=== PATIENT | female | born 1940 | race Two or more races ===

== ENCOUNTER → 2021-11-21 | Outpatient (CLI) | payer MEDICARE | LOC: M RAD 09:07 | PROVIDERS: ATTEND Family Medicine | DX: R19.04 Left lower quadrant abdominal swelling, mass and lump (principal) ==

== ENCOUNTER → 2021-12-05 | Outpatient (CLI) | payer MEDICARE | LOC: M RAD 13:11 | PROVIDERS: ATTEND Family Medicine | DX: I71.4 Abdominal aortic aneurysm, without rupture (principal); R19.04 Left lower quadrant abdominal swelling, mass and lump ==

== ENCOUNTER → 2021-12-15 | Outpatient (CLI) | payer MEDICARE ==
[2021-12-15 16:03] LABS: BASO % 0.5 % (0.0-1.0); EOS # 0.1 10^3/uL (0.0-0.5); EOS % 1.8 % (0.0-3.0); HEMATOCRIT 42.3 % (36.0-47.0); LYMPH # 1.7 10^3/uL (1.5-5.0); LYMPH % 22.5 % (24.0-44.0); MEAN CORPUSCULAR HEMOGLOBIN 31.7 pg (27.0-33.0); MEAN CORPUSCULAR HGB CONC 33.1 g/dl (32.0-36.5); MEAN CORPUSCULAR VOLUME 95.7 fl (80.0-96.0); MONO # 0.9 10^3/uL (0.0-0.8); MONO % 11.7 % (2.0-8.0); NEUTROPHILS # 4.8 10^3/uL (1.5-8.5); NEUTROPHILS % 63.1 % (36.0-66.0); PLATELET COUNT, AUTOMATED 276 10^3/uL (150-450); RED BLOOD COUNT 4.42 10^6/uL (4.00-5.40); WHITE BLOOD COUNT 7.6 10^3/uL (4.0-10.0)
[2021-12-15 16:37] LABS: ERYTHROCYTE SEDIMENTATION RATE 8 mm/hr (0-30)
[2021-12-15 18:51] LABS: ALT/SGPT 36 U/L (12-78); BILIRUBIN,TOTAL 0.4 MG/DL (0.2-1.0); BLOOD UREA NITROGEN 33 MG/DL (7-18); CALCIUM LEVEL 10.4 MG/DL (8.8-10.2); CARBON DIOXIDE LEVEL 41 MEQ/L (21-32); CHLORIDE LEVEL 98 MEQ/L (98-107); CHOLESTEROL LEVEL 237 MG/DL (<200); CHOLESTEROL RISK RATIO 2.116 (<5); GLOMERULAR FILTRATION RATE > 60.0 (>32); GLUCOSE, FASTING 81 MG/DL (70-100); HDL CHOLESTEROL 112 MG/DL (>40); LDL CHOLESTEROL 114 MG/DL (<100); NON-HDL-C 125 MG/DL; POTASSIUM SERUM 2.8 MEQ/L (3.5-5.1); SODIUM LEVEL 142 MEQ/L (136-145); THYROID STIMULATING HORMONE 0.956 uIU/ML (0.358-3.740); TOTAL 25(OH) VITAMIN D 35.3 NG/ML (30.0-100.0); TOTAL PROTEIN 6.6 GM/DL (6.4-8.2); TRIGLYCERIDES LEVEL 57 MG/DL (<150)
== END ==
LOC: M LAB 15:08
PROVIDERS: ATTEND Family Medicine
DX: R19.04 Left lower quadrant abdominal swelling, mass and lump (principal); F33.9 Major depressive disorder, recurrent, unspecified; Z79.899 Other long term (current) drug therapy

== ENCOUNTER 2021-12-25 20:55 | Emergency (ER) | payer MEDICARE, OTHER ==
[~2021-12-25] VITALS: Ht 165.1 cm; Wt 54.5 kg
[2021-12-25] MEDS ORDERED: MORPHINE 4 MG/ML 1ML VIAL/SYRINGE IV ONE (22:20)
[2021-12-25 22:54] LABS: BASO % 0.5 % (0.0-1.0); EOS # 0.1 10^3/uL (0.0-0.5); EOS % 1.4 % (0.0-3.0); HEMATOCRIT 41.9 % (36.0-47.0); HEMOGLOBIN 14.4 g/dl (12.0-15.5); LYMPH # 2.2 10^3/uL (1.5-5.0); LYMPH % 25.7 % (24.0-44.0); MEAN CORPUSCULAR HEMOGLOBIN 32.4 pg (27.0-33.0); MEAN CORPUSCULAR HGB CONC 34.4 g/dl (32.0-36.5); MEAN CORPUSCULAR VOLUME 94.2 fl (80.0-96.0); MONO # 0.8 10^3/uL (0.0-0.8); MONO % 9.3 % (2.0-8.0); NEUTROPHILS # 5.3 10^3/uL (1.5-8.5); NEUTROPHILS % 62.9 % (36.0-66.0); PLATELET COUNT, AUTOMATED 277 10^3/uL (150-450); RED BLOOD COUNT 4.45 10^6/uL (4.00-5.40); WHITE BLOOD COUNT 8.5 10^3/uL (4.0-10.0)
[2021-12-25 23:23] LABS: ALBUMIN 3.7 GM/DL (3.2-5.2); ALT/SGPT 38 U/L (12-78); BILIRUBIN,DIRECT 0.1 MG/DL (0.0-0.2); BILIRUBIN,TOTAL 0.5 MG/DL (0.2-1.0); BLOOD UREA NITROGEN 21 MG/DL (7-18); CALCIUM LEVEL 9.9 MG/DL (8.8-10.2); CARBON DIOXIDE LEVEL 23 MEQ/L (21-32); CHLORIDE LEVEL 109 MEQ/L (98-107); CREATININE FOR GFR 0.97 MG/DL (0.55-1.30); GLOMERULAR FILTRATION RATE > 60.0 (>32); GLUCOSE, FASTING 88 MG/DL (70-100); LIPASE 169 U/L (73-393); POTASSIUM SERUM 3.1 MEQ/L (3.5-5.1); SODIUM LEVEL 141 MEQ/L (136-145); TOTAL PROTEIN 6.4 GM/DL (6.4-8.2)
[2021-12-26] MEDS ORDERED: valACYclovir HCL 500 MG TAB PO ONE (01:00)
[2021-12-26] MEDS ORDERED: GABAPENTIN 100 MG CAP PO ONE (01:00)
[2021-12-26] MEDS ORDERED: POTASSIUM CHLORIDE 10MEQ SR TABLET PO ONE (01:00)
[2021-12-26] MEDS ORDERED: VALT1TAB PO (01:39)
[2021-12-26] MEDS ORDERED: NEUR100C PO (01:39)
[2021-12-26] MEDS ORDERED: CEFD300C PO (01:39)
[2021-12-26] MEDS ORDERED: CEFDINIR 300 MG CAP (OMNICEF) PO ONE (01:45)
[2021-12-26] MEDS ORDERED: ONDANSETRON 4MG ORAL DISINTEGRATING TAB PO ONE (02:00)
[2021-12-26 02:26] VITALS: BP 160/81
== END 2021-12-26 02:28 | disposition home or self-care (01) ==
LOC: M ED 20:55
DX: N39.0 Urinary tract infection, site not specified (principal); B02.8 Zoster with other complications; R21 Rash and other nonspecific skin eruption; I10 Essential (primary) hypertension; K21.9 Gastro-esophageal reflux disease without esophagitis; Z79.899 Other long term (current) drug therapy
CPT/HCPCS: 74176; 80048; 80076; 81001; 83690; 85025; 87086; 93041; 96374; 99285; J2270

== ENCOUNTER → 2022-03-23 | Outpatient (CLI) | payer MEDICARE ==
[~2022-03-23] MED LIST: CEFD300C PO; NEUR100C PO; VALT1TAB PO
[2022-03-23 15:18] LABS: APPEARANCE, URINE HAZY (CLEAR); BACTERIA, URINE AUTO NEGATIVE (NEGATIVE); BILIRUBIN, URINE AUTO NEGATIVE (NEGATIVE); BLOOD, URINE BLOOD 2+ (NEGATIVE); COLOR, URINE YELLOW (YELLOW); GLUCOSE, URINE (UA) AUTO NEGATIVE (NEGATIVE); KETONE, URINE AUTO TRACE mg/dL (NEGATIVE); LEUKOCYTE ESTERASE, URINE AUTO 2+ (NEGATIVE); NITRITE, URINE AUTO NEGATIVE (NEGATIVE); PROTEIN, URINE AUTO 1+ mg/dL (NEGATIVE); RBC, URINE AUTO 2 /HPF (0-3); SQUAMOUS EPITHELIAL CELL UR AU 0 /HPF (0-6); UROBILINOGEN, URINE AUTO 0.2 mg/dL (0.0-2.0); WBC, URINE AUTO 2 /HPF (0-3)
[2022-03-23 15:43] LABS: CREATININE FOR GFR 1.35 MG/DL (0.55-1.30); GLOMERULAR FILTRATION RATE 39.9 (>32); MAGNESIUM LEVEL 1.9 MG/DL (1.8-2.4); POTASSIUM SERUM 3.7 MEQ/L (3.5-5.1)
== END ==
LOC: M LAB 14:35
PROVIDERS: ATTEND Family Medicine
DX: E87.6 Hypokalemia (principal)

== ENCOUNTER → 2022-09-03 | Outpatient (CLI) | payer MEDICARE | LOC: M RAD 13:28 | PROVIDERS: ATTEND Family Medicine | DX: M54.50 Low back pain, unspecified (principal) ==

== ENCOUNTER → 2023-06-03 | Outpatient (CLI) | payer MEDICARE, OTHER ==
[2023-06-03 16:36] LABS: CALCIUM LEVEL 10.8 MG/DL (8.3-10.6); CREATININE FOR GFR 1.08 MG/DL (0.55-1.30); GLOMERULAR FILTRATION RATE 51.5 (>32); POTASSIUM SERUM 4.7 MMOL/L (3.5-5.1)
== END ==
LOC: M LAB 15:32
PROVIDERS: ATTEND Family Medicine
DX: E83.52 Hypercalcemia (principal); E87.6 Hypokalemia

== ENCOUNTER 2023-12-05 10:30 | Day surgery (SDC) | payer OTHER ==
[~2023-12-05] VITALS: Ht 165.1 cm; Wt 63.0 kg
[~2023-12-05 10:30] MED LIST changes: +BSS IRRIG/VANCO(10MG)/TOBRA(5MG)/EPINEPH(1:1000-0.5CC)500ML BAG-ORONLY As Ordered ONE; +DULO1CAP4 PO; +FAMO1TAB11 PO; +MELO7.5T35 PO; +METO50TA7 PO; +MIDAZOLAM INJ 2MG/2ML VIAL As Ordered ONE; +PHENYLEPHRINE 10% OPHTH SOL 5ML OS PRN; +POTA-151 PO; +fentaNYL 100 MCG/2 ML INJECTION As Ordered ONE
[2023-12-05] MEDS: PHENYLEPHRINE 2.5% OPHTH SOL 2ML OS SCH (11:12)
[2023-12-05] MEDS: TROPICAMIDE 1% OPHTH SOLN 15ML OS SCH (11:12)
[2023-12-05] MEDS: ATROPINE SULFATE 1% OPHTH SOLN 2ML BTL OS SCH (11:13)
[2023-12-05] MEDS: OFLOXACIN 0.3 % (OCUFLOX) OPTH SOL 5ML OS ONE (11:13)
[2023-12-05] MEDS: LIDOCAINE 3.5 % 1ML OPHTH TOPICAL GEL OU ONE (11:13)
[2023-12-05] MEDS: LIDOCAINE 1% SDV 5ML VIAL As Ordered ONE (12:35)
[2023-12-05] MEDS: CEFUROXIME 1MG/0.1ML INTRACAMERAL INJ As Ordered ONE (12:35)
[2023-12-05 12:45] VITALS: BP 131/84; TEMP 97.4; O2SAT 96
== END 2023-12-05 13:35 | disposition home or self-care (01) ==
LOC: M SDC 10:30
PROVIDERS: ATTEND Ophthalmology
DX: H25.12 Age-related nuclear cataract, left eye (principal); I10 Essential (primary) hypertension; R32 Unspecified urinary incontinence; F41.9 Anxiety disorder, unspecified; F32.A Depression, unspecified; Z79.899 Other long term (current) drug therapy
CPT/HCPCS: 66984; J0697; J2250; J3010; V2632

== ENCOUNTER → 2024-08-17 | Outpatient (REF) | payer OTHER ==
[~2024-08-17] MED LIST changes: -BSS IRRIG/VANCO(10MG)/TOBRA(5MG)/EPINEPH(1:1000-0.5CC)500ML BAG-ORONLY As Ordered ONE; -MIDAZOLAM INJ 2MG/2ML VIAL As Ordered ONE; -PHENYLEPHRINE 10% OPHTH SOL 5ML OS PRN; -fentaNYL 100 MCG/2 ML INJECTION As Ordered ONE
== END ==
LOC: M SFHCLERA 11:22
PROVIDERS: ATTEND Family Medicine
DX: R32 Unspecified urinary incontinence (principal)

== ENCOUNTER → 2024-10-05 | Outpatient (CLI) | payer MEDICARE | LOC: M RAD 13:23 | PROVIDERS: ATTEND Family Medicine | DX: I73.9 Peripheral vascular disease, unspecified (principal); I71.40 Abdominal aortic aneurysm, without rupture, unspecified ==

== ENCOUNTER 2024-10-08 12:18 | Emergency (ER) | payer MEDICARE ==
[~2024-10-08] VITALS: Ht 157.5 cm; Wt 52.3 kg
[2024-10-08] MEDS: methocarbamoL 500 MG TAB PO ONE (17:14)
[2024-10-08] MEDS: ACETAMINOPHEN 500 MG TAB PO ONE (17:14)
[2024-10-08] MEDS: KETOROLAC 30 MG/ML 1ML VIAL IM ONE (17:17)
[2024-10-08 18:58] VITALS: BP 142/68; TEMP 97.9; O2SAT 98
== END 2024-10-08 19:11 | disposition home or self-care (01) ==
LOC: M ED 12:18
DX: M54.31 Sciatica, right side (principal); M54.50 Low back pain, unspecified; I10 Essential (primary) hypertension; F12.10 Cannabis abuse, uncomplicated; Z79.899 Other long term (current) drug therapy
CPT/HCPCS: 72110; 96372; 99284; J1885

== ENCOUNTER → 2024-11-25 | Outpatient (CLI) | payer MEDICARE | LOC: M PAL 07:42 | PROVIDERS: ATTEND Physician Assistant | DX: Z51.5 Encounter for palliative care (principal); F32.9 Major depressive disorder, single episode, unspecified; G89.29 Other chronic pain; M54.50 Low back pain, unspecified; I73.9 Peripheral vascular disease, unspecified; R41.0 Disorientation, unspecified; R29.6 Repeated falls; Z79.899 Other long term (current) drug therapy ==

== ENCOUNTER → 2025-06-08 | Outpatient (CLI) | payer MEDICARE | LOC: M SOG 07:30 | PROVIDERS: ATTEND Orthopaedic Surgery | DX: M16.11 Unilateral primary osteoarthritis, right hip (principal) ==

== ENCOUNTER → 2025-06-16 | Outpatient (CLI) | payer MEDICARE | LOC: M PLAIMG 10:30 | PROVIDERS: ATTEND Orthopaedic Surgery | DX: M54.16 Radiculopathy, lumbar region (principal); M51.26 Other intervertebral disc displacement, lumbar region ==

== ENCOUNTER → 2025-09-09 | Outpatient (CLI) | payer MEDICARE | LOC: M PAL 10:05 | PROVIDERS: ATTEND Physician Assistant | DX: Z51.5 Encounter for palliative care (principal); F03.90 Unspecified dementia, unspecified severity, without behavioral disturbance, psychotic disturbance, mood disturbance, and anxiety; F32.9 Major depressive disorder, single episode, unspecified; G89.4 Chronic pain syndrome; Z79.891 Long term (current) use of opiate analgesic; Z79.899 Other long term (current) drug therapy ==